=== PATIENT | male | born 1970 | race Two or more races ===

== ENCOUNTER 2017-10-25 13:52 | Emergency (ER) | payer OTHER ==
--- NOTE | 2017-10-25 14:42 | EDM.PDOC ---
ED HPI GENERAL MEDICAL PROBLEM - General Chief Complaint: Flank Pain Stated Complaint: LEFT SIDE INJURY Time Seen by Provider: 10/25/17 14:04 Source of Information: Reports: Patient History Limitations: Reports: No Limitations - History of Present Illness INITIAL COMMENTS - FREE TEXT/NARRATIVE: 47-year-old male presents for evaluation and treatment of pain to the left flank. Patient reports on , 5 days ago, he was at work. 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 States he was changing a tire when one of the tires shifted. He reports a twisting sensation and feeling a pop around his left flank area. He reports pain to the left mid back into the left flank and groin. He states since then he has had pain to the area, worse with movement. he states he has been taking [id number] medications but this pain continues. He reports on Tuesday he developed cramps and bloating. He denies any nausea, vomiting or syncope. No urinary symptoms such as hematuria or dysuria. Reports she's had some kidney stones in the past and this does not feel similar. Left Lower Chest Pain Score (Numeric/FACES): 7 - Related Data Allergies Allergy/AdvReac Type Severity Reaction Status Date / Time No Known Allergies Allergy Verified 10/25/17 14:05 Home Meds: Home Meds traMADol HCl [Tramadol HCl] 50 mg PO Q6H PRN #15 tablet 10/25/17 [Rx] traZODone HCl [Trazodone HCl] 50 mg PO BEDTIME PRN 10/25/17 [History] Past Medical History - Past Surgical History GI Surgical History: Reports: Appendectomy Musculoskeletal Surgical History: Reports: Other (See Below) Other Musculoskeletal Surgeries/Procedures:: right ulnar bone shortened Social & Family History - Tobacco Use Smoking Status *Q: Never Smoker - Caffeine Use Caffeine Use: Reports: Coffee - Recreational Drug Use Recreational Drug Use: No ED ROS GENERAL - Review of Systems Review Of Systems: See Below GI/Abdominal: Reports: Abdominal Pain (left lower abdomen into groni), Other ( reprots bloating over the weekend). Denies: Nausea, Vomiting : Reports: Flank Pain (left). Denies: Dysuria, Hematuria Musculoskeletal: Reports: Back Pain (left mid to low back) Neurological: Denies: Syncope ED EXAM, GI/ABD - Physical Exam Exam: See Below Exam Limited By: No Limitations General Appearance: Alert, WD/WN, No Apparent Distress Respiratory/Chest: No Respiratory Distress, Lungs Clear, Normal Breath Sounds Cardiovascular: Normal Peripheral Pulses, Regular Rate, Rhythm, No Murmur GI/Abdominal Exam: Normal Bowel Sounds, Soft, Non-Tender, Tender (tenderness to the left flank) Neurological: Alert, Oriented, Normal Cognition Psychiatric: Normal Affect, Normal Mood Skin Exam: Warm, Dry, Normal Color Course - Vital Signs Last Recorded V/S: Last Vital Signs Temp 97.6 F 10/25/17 14:01 Pulse 88 10/25/17 14:01 Resp 18 10/25/17 14:01 BP 132/90 10/25/17 14:01 Pulse Ox 100 10/25/17 14:01 - Orders/Labs/Meds Labs: Laboratory Tests 10/25/17 Range/Units 14:15 Urine Color Yellow (Yellow) Urine Appearance Clear (Clear) Urine pH 6.0 (5.0-8.0) Ur Specific [place] > or = 1.030 (1.005-1.030) Urine Protein 1+ H (Negative) Urine Glucose (UA) Negative (Negative) Urine Ketones Negative (Negative) Urine Occult Blood Trace-lysed H (Negative) Urine Nitrite Negative (Negative) Urine Bilirubin Negative (Negative) Urine Urobilinogen 0.2 (0.2-1.0) Ur Leukocyte Esterase Negative (Negative) Urine RBC 0-5 (0-5) /hpf Urine WBC 0-5 (0-5) /hpf Ur Epithelial Cells 0-5 (0-5) /hpf Urine Bacteria Occasional (FEW) /hpf Urine Mucus Moderate H (FEW) /hpf Departure - Departure Time of Disposition: 15:47 Disposition: Home, Self-Care 01 Condition: Good Clinical Impression: Abdominal muscle strain - Discharge Information *PRESCRIPTION DRUG MONITORING PROGRAM REVIEWED*: No *COPY OF PRESCRIPTION DRUG MONITORING REPORT IN PATIENT FILIBERTO: No Prescriptions: traMADol HCl [Tramadol HCl] 50 mg PO Q6H PRN #15 tablet PRN Reason: Pain Instructions: Muscle Strain, [id number] Referrals: PCP,None [Primary Care Provider] - Mynor Fontana MD [Physician] - Forms: ED Department Discharge Additional Instructions: Recommend ice or heat to the sore area for pain relief. may also try topical products such as icy hot or BenGay. Follow-up with occupational health within one week for recheck of your symptoms. Recommend Dr. Fontana at [place]. Please call [phone] to schedule with him. [id number] Tylenol or Motrin as needed for pain relief. For pain not relieved by Tylenol or Motrin may take tramadol, 1 tablet every [address] and operate machinery within 8 hours of taking tramadol. Tramadol can be habit forming, take as little as needed to control you pain. Please return to the ER if your symptoms change or worsen.
--- NOTE | 2017-10-26 12:30 | CR ---
Abdomen: Supine and upright views of the abdomen were obtained. Comparison: No prior abdominal x-ray. Small calcification is seen within the left pelvis most likely due to phlebolith. No other abnormal calcifications are seen. Bowel gas pattern is normal. No soft tissue abnormality is appreciated. Bony structures appear within normal limits. Impression: 1. Nothing acute is seen on two-view abdominal x-ray. Diagnostic code #2
== END 2017-10-25 16:02 | disposition home or self-care (01) ==
LOC: JD.ED 13:52
DX: S39.011A Strain of muscle, fascia and tendon of abdomen, initial encounter (principal); X50.1XXA Overexertion from prolonged static or awkward postures, initial encounter; Y99.0 Civilian activity done for income or pay
CPT/HCPCS: 74019; 74019-26; 81001; 99284

== ENCOUNTER 2017-11-18 13:52 | Emergency (ER) | payer BC, OTHER ==
[2017-11-18] MEDS ORDERED: HYDROmorphone 0.5 MG/0.5 ML SYRINGE IVPUSH ONE ×2 (14:35→16:10)
[2017-11-18] MEDS ORDERED: Sodium Chloride 0.9% 10 ML Syringe FLUSH PRN (14:35)
[2017-11-18] MEDS ORDERED: Ondansetron 4 MG/2 ML SDV IVPUSH ONE (14:35)
--- NOTE | 2017-11-18 14:38 | EDM.PDOC ---
ED HPI GENERAL MEDICAL PROBLEM - General Chief Complaint: Back Pain or Injury Stated Complaint: RT SIDE AND BACK PAIN Time Seen by Provider: 11/18/17 14:30 Source of Information: Reports: Patient History Limitations: Reports: No Limitations - History of Present Illness INITIAL COMMENTS - FREE TEXT/NARRATIVE: Patient is a 47-year-old male who presents ED complaining of right flank and right groin pain. Patient states this started approximately 2 days ago. He's been having a difficulty with urinating. This is because of increasing pain noted. He's been taken ibuprofen with little relief. He has no history kidney stones. States his appendix is removed. He takes trazodone help him sleep. Denies any fever, chills, nausea/vomiting, diarrhea, blood in stool, pain to his testicles, dysuria, recent trauma, or any additional complaints. 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 Right Flank Pain Score (Numeric/FACES): 9 - Related Data Allergies Allergy/AdvReac Type Severity Reaction Status Date / Time No Known Allergies Allergy Verified 11/18/17 14:13 Home Meds: Home Meds traZODone HCl [Trazodone HCl] 50 mg PO BEDTIME PRN 10/25/17 [History] Acetaminophen/oxyCODONE [Percocet 325-5 MG] 1 each PO Q6HR PRN #12 tab 11/18/17 [Rx] Ondansetron [Zofran ODT] 4 mg PO Q6H PRN #12 tab.dis 11/18/17 [Rx] Tamsulosin HCl [Flomax] 0.4 mg PO QAM #5 cap.er.24h 11/18/17 [Rx] Past Medical History - Past Health History Medical/Surgical History: Denies Medical/Surgical History - Infectious Disease History Infectious Disease History: Reports: Chicken Pox - Past Surgical History GI Surgical History: Reports: Appendectomy Musculoskeletal Surgical History: Reports: Other (See Below) Other Musculoskeletal Surgeries/Procedures:: right ulnar bone shortened Social & Family History - Family History Family Medical History: Noncontributory - Tobacco Use Smoking Status *Q: Never Smoker - Caffeine Use Caffeine Use: Reports: Coffee, Energy Drinks, Soda - Recreational Drug Use Recreational Drug Use: No ED ROS GENERAL - Review of Systems Review Of Systems: See Below Constitutional: Denies: Fever, Chills, Decreased Appetite Respiratory: Reports: No Symptoms Cardiovascular: Reports: No Symptoms GI/Abdominal: Reports: Abdominal Pain (right groin). Denies: Constipation, Diarrhea, Decreased Appetite, Nausea, Vomiting : Reports: Dysuria, Frequency, Urgency, Urinary Retention Musculoskeletal: Reports: Other (right low back pain with radiation to the right groin and testicles) Skin: Reports: No Symptoms ED EXAM, GI/ABD - Physical Exam Exam: See Below Exam Limited By: No Limitations General Appearance: Alert, WD/WN, Moderate Distress Ears: Hearing Grossly Normal Nose: Normal Inspection Throat/Mouth: Normal Voice, No Airway Compromise Neck: Normal Inspection, Supple Respiratory/Chest: No Respiratory Distress, Lungs Clear, Normal Breath Sounds, No Accessory Muscle Use Cardiovascular: Normal Peripheral Pulses, Regular Rate, Rhythm GI/Abdominal Exam: Normal Bowel Sounds, Soft, Non-Tender, No Organomegaly, No Distention Back Exam: Normal Inspection, CVA Tenderness (R) Neurological: Alert, Oriented, CN II-XII Intact, Normal Cognition, No Motor/ Sensory Deficits Psychiatric: Normal Affect, Normal Mood Skin Exam: Warm, Dry, Intact, Normal Color Course - Vital Signs Last Recorded V/S: Last Vital Signs Temp 97.3 F 11/18/17 14:09 Pulse 67 11/18/17 14:09 Resp 18 11/18/17 14:09 BP 130/95 H 11/18/17 14:09 Pulse Ox 100 11/18/17 14:09 - Orders/Labs/Meds Labs: Laboratory Tests 11/18/17 11/18/17 Range/Units 14:50 14:50 WBC 8.06 (4.23-9.07) K/mm3 RBC 5.03 (4.63-6.08) M/mm3 Hgb 14.9 (13.7-17.5) gm/L Hct 44.5 (40.1-51.0) % MCV 88.5 (79.0-92.2) fl MCH 29.6 (25.7-32.2) pg MCHC 33.5 (32.2-35.5) g/dl RDW Std Deviation 40.4 (35.1-43.9) fL Plt Count 301 (163-337) K/mm3 MPV 9.8 (9.4-12.3) fl Neutrophils % (Manual) 64 H (40-60) % Band Neutrophils % 0 (0-10) % Lymphocytes % (Manual) 29 (20-40) % Atypical Lymphs % 0 % Monocytes % (Manual) 4 (2-10) % Eosinophils % (Manual) 1 (0.8-7.0) % Basophils % (Manual) 2 H (0.2-1.2) Platelet Estimate Adequate Plt Morphology Comment Normal RBC Morph Comment Normal Sodium 137 (136-145) mEq/L Potassium 3.9 (3.5-5.1) mEq/L Chloride 104 (98-107) mEq/L Carbon Dioxide 25 (21-32) mEq/L Anion Gap 11.9 (5-15) BUN 10 (7-18) mg/dL Creatinine 1.1 (0.7-1.3) mg/dL Est Cr Clr Drug Dosing 72.99 mL/min Estimated GFR (MDRD) > 60 (>60) mL/min BUN/Creatinine Ratio 9.1 L (14-18) Glucose 87 (74-106) mg/dL Calcium 9.0 (8.5-10.1) mg/dL Total Bilirubin 0.7 (0.2-1.0) mg/dL AST 29 (15-37) U/L ALT 56 (16-63) U/L Alkaline Phosphatase 133 H (46-116) U/L C-Reactive Protein 0.4 (<1.0) mg/dL Total Protein 8.2 (6.4-8.2) g/dl Albumin 4.3 (3.4-5.0) g/dl Globulin 3.9 gm/dL Albumin/Globulin Ratio 1.1 (1-2) Meds: Medications Discontinued Medications Generic Name Dose Route Start Last Admin Trade Name Freq PRN Reason Stop Dose Admin Hydromorphone HCl 0.5 mg 11/18/17 14:35 11/18/17 15:01 Dilaudid IVPUSH 11/18/17 14:36 0.5 mg ONETIME ONE Administration Hydromorphone HCl 0.5 mg 11/18/17 16:10 11/18/17 16:32 Dilaudid IVPUSH 11/18/17 16:11 0.5 mg ONETIME ONE Administration Sodium Chloride 1,000 mls @ 250 mls/hr 11/18/17 14:45 11/18/17 15:03 Normal Saline IV 250 mls/hr ASDIRECTED STUART Administration Ondansetron HCl 4 mg 11/18/17 14:35 11/18/17 14:58 Zofran IVPUSH 11/18/17 14:36 4 mg ONETIME ONE Administration Sodium Chloride 10 ml 11/18/17 14:35 11/18/17 15:06 Saline Flush FLUSH 10 ml ASDIRECTED PRN Administration Keep Vein Open Tamsulosin HCl 0.4 mg 11/18/17 16:17 11/18/17 16:32 Flomax PO 11/18/17 16:18 0.4 mg ONETIME ONE Administration - Re-Assessments/Exams Free Text/Narrative Re-Assessment/Exam: CBC and chemistry panel were essentially normal. UA obtained earlier today at indicated trace ketones and trace blood in the urine. CT the abdomen and pelvis impression: Slightly prominent right ureter due to an obstructing distal right ureteral stone measuring 2.8 mm. This ureteral stone is located slightly proximal to the UVJ. Fatty infiltration within the liver. No additional abnormalities appreciated on noncontrast CT study of the abdomen and pelvis. Discuss results of labs and CT study with the patient. Still experiencing some discomfort. Ordered Flomax and Dilaudid. Patient will be discharged home with instructions as documented.The patient remained hemodynamically stable while under my care in the E.D. I discussed the concerning symptoms for which to returnto the E.D. with the patient/family. The patient/family verbalized understanding. All questions were answered. Departure - Departure Time of Disposition: 16:16 Disposition: Admitted As Inpatient 67 Condition: Good Clinical Impression: Kidney stone on right side - Discharge Information Prescriptions: Acetaminophen/oxyCODONE [Percocet 325-5 MG] 1 each PO Q6HR PRN #12 tab PRN Reason: Pain (Severe 7-10) Ondansetron [Zofran ODT] 4 mg PO Q6H PRN #12 tab.dis PRN Reason: Nausea Tamsulosin HCl [Flomax] 0.4 mg PO QAM #5 cap.er.24h Instructions: Kidney Stones, [id number], Pain Medicine Instructions, Easy-to- Read Referrals: PCP,None [Primary Care Provider] - Forms: ED Department Discharge Additional Instructions: Strain all urine voids until stone passes. Take Flomax 1 tablet every day for 5 days. Utilize Percocet one tab every 6 hours as needed for severe pain. Take Zofran 1 tablet every 6 hours as needed for nausea and vomiting. Push the fluids. If stone has not passed within the next 3-5 days please contact urologist of your choice in [place] for further evaluation. Return to the ED if you develop any new or worsening symptoms. Do not drive today since receiving a sedative medication. Do not drive while taking the Percocet.
[2017-11-18] MEDS ORDERED: Sodium Chloride 0.9% 1,000 ML IV SCH (14:45)
--- NOTE | 2017-11-18 15:40 | CT ---
CT abdomen and pelvis Technique: Multiple axial sections were obtained from above the dome of the diaphragm inferiorly through the pubic symphysis. Intravenous contrast was not utilized. Study performed as a ureteral stone protocol. Comparison: No prior CT exam, previous abdominal x-ray 10/25/17. Findings: Kidneys show no abnormal calcifications. Right ureter is slightly prominent. This is due to an obstructing stone within the distal right ureter measuring about 2.8 mm. This occurs slightly proximal to the right UVJ. No other abnormal calcifications are seen along the course of the ureters. Visualized lung bases shows nothing acute. Liver shows mild fatty infiltration. Spleen appears within normal limits. Adrenal glands show no nodule. Pancreas is within normal limits. Gallbladder contains no calcified gallstones. Aorta shows no aneurysm. No retroperitoneal adenopathy is seen. Previous appendectomy appears to be present. No pelvic mass or adenopathy is seen. No free fluid or inflammatory change is seen within the abdomen or pelvis. Bone window settings were reviewed which appear within normal limits for the patient's age. Impression: 1. Slightly prominent right ureter due to an obstructing distal right ureteral stone measuring 2.8 mm. This ureteral stone is located slightly proximal to the UVJ. 2. Fatty infiltration within the liver. 3. No additional abnormality is appreciated on noncontrast CT study of the abdomen and pelvis. Diagnostic code #3
[2017-11-18] MEDS ORDERED: Tamsulosin 0.4 MG Cap.ER PO ONE (16:17)
== END 2017-11-18 16:42 | disposition critical access hospital (66) ==
LOC: JD.ED 13:52
DX: N20.2 Calculus of kidney with calculus of ureter (principal)
CPT/HCPCS: 36415; 51798; 74176; 80053; 85007; 85027; 86140; 96361; 96374; 96375; 96376; 99284; A9270; J1170; J2405; J7040; J7050

== ENCOUNTER 2018-05-22 09:09 | Emergency (ER) | payer BC ==
[2018-05-22] MEDS ORDERED: Ketorolac 30 MG/ML SDV IVPUSH STA (10:16)
[2018-05-22] MEDS ORDERED: HYDROmorphone 1 MG/ML Syringe IVPUSH ONE (10:16)
[2018-05-22] MEDS ORDERED: Ondansetron 4 MG/2 ML SDV IVPUSH ONE (10:16)
[2018-05-22] MEDS ORDERED: Tamsulosin 0.4 MG Cap.ER PO ONE (10:16)
--- NOTE | 2018-05-22 10:19 | EDM.PDOC ---
ED HPI GENERAL MEDICAL PROBLEM - General Chief Complaint: Back Pain or Injury Stated Complaint: LOW BACK PAIN Time Seen by Provider: 05/22/18 10:03 Source of Information: Reports: Patient, Family (), RN Notes Reviewed History Limitations: Reports: No Limitations - History of Present Illness INITIAL COMMENTS - FREE TEXT/NARRATIVE: The patient states that he developed lower right back pain about a week ago. It radiates to his midline suprapubic region. It does not radiate down either lower extremity. It is burning in character, and constant, but made worse with virtually any movement. He states that it has been getting progressively worse over the week. The patient states that he has had both constipation and diarrhea for the past week. No nausea or vomiting. No urinary symptoms or gross hematuria. No recent fever. No prior similar symptoms; the patient states that he has had both kidney stones and muscle spasms and does not believe that this feels like either of those. The patient states that he has chronic right arm pain, for which she takes one tablet of Percocet every 4-5 hours along with ibuprofen, but he states that taking both of those has not helped with his pain. The patient states that he is from [place] and that he does not have a PCP. Lower Back Pain Score (Numeric/FACES): 9 - Related Data Allergies Allergy/AdvReac Type Severity Reaction Status Date / Time No Known Allergies Allergy Verified 05/22/18 09:31 Home Meds: Home Meds traZODone HCl [Trazodone HCl] 50 mg PO BEDTIME PRN 10/25/17 [History] Acetaminophen/oxyCODONE [Percocet 325-5 MG] 1 each PO Q6HR PRN #12 tab 11/18/17 [Rx] Ondansetron [Zofran ODT] 4 mg PO Q6H PRN #12 tab.dis 11/18/17 [Rx] Tamsulosin HCl [Flomax] 0.4 mg PO QAM #5 cap.er.24h 11/18/17 [Rx] Orphenadrine [Norflex] 1 tab PO Q12H PRN #14 tab.er 05/22/18 [Rx] Past Medical History Gastrointestinal History: Reports: GERD Genitourinary History: Reports: Renal Calculus Musculoskeletal History: Reports: Other (See Below) (Chronic right arm pain) - Infectious Disease History Infectious Disease History: Reports: Chicken Pox - Past Surgical History GI Surgical History: Reports: Appendectomy Musculoskeletal Surgical History: Reports: Other (See Below) (Multiple surgeries on right arm, including ulnar shortening) Social & Family History - Family History Family Medical History: Noncontributory - Tobacco Use Smoking Status *Q: Never Smoker - Caffeine Use Caffeine Use: Reports: Coffee, Soda - Alcohol Use Alcohol Use History: Yes Alcohol Use Frequency: Rarely - Recreational Drug Use Recreational Drug Use: No - Living Situation & Occupation Living situation: Reports: , with Spouse, with Family (1 son) Occupation: Employed ([employer]) ED ROS GENERAL - Review of Systems Review Of Systems: ROS reveals no pertinent complaints other than HPI. ED EXAM, GENERAL - Physical Exam Exam: See Below Exam Limited By: No Limitations General Appearance: Alert, WD/WN, No Apparent Distress Eye Exam: Bilateral Eye: EOMI, Normal Inspection Ears: Normal External Exam, Hearing Grossly Normal Nose: Normal Inspection Throat/Mouth: Normal Inspection, Normal Lips, Normal Voice, No Airway Compromise Head: Atraumatic, Normocephalic Neck: Normal Inspection, Full Range of Motion Respiratory/Chest: No Respiratory Distress, Lungs Clear, Normal Breath Sounds, No Accessory Muscle Use Cardiovascular: Normal Peripheral Pulses, Regular Rate, Rhythm, No Edema, No Gallop, No JVD, No Murmur, No Rub Peripheral Pulses: 4+: Radial (L), Radial (R) GI/Abdominal: Normal Bowel Sounds, Soft, No Organomegaly, No Distention, No Abnormal Bruit, No Mass, Tender (Generalized, non-focal) (Male) Exam: Deferred Rectal (Males) Exam: Deferred Back Exam: Normal Inspection, Full Range of Motion, Paraspinal Tenderness ( right lower back, including right flank) Extremities: Normal Inspection, Normal Range of Motion, No Pedal Edema, Normal Capillary Refill Neurological: Alert, Oriented, Normal Cognition, No Motor/Sensory Deficits Psychiatric: Normal Affect Skin Exam: Warm, Dry, Intact, Normal Color, No Rash Course - Vital Signs Last Recorded V/S: Last Vital Signs Temp 36.6 C 05/22/18 09:31 Pulse 68 05/22/18 09:31 Resp 14 05/22/18 09:31 BP 121/90 05/22/18 09:31 Pulse Ox 98 05/22/18 09:31 - Orders/Labs/Meds Orders: Active Orders 24 hr Category Date Time Status Sodium Chloride 0.9% [Normal Saline] 1,000 ml Med 05/22/18 10:30 Active IV ASDIRECTED Sodium Chloride 0.9% [Saline Flush] Med 05/22/18 10:52 Active 10 ml FLUSH ONETIME PRN Medication Orders Sodium Chloride (Normal Saline) 1,000 mls @ 150 mls/hr IV ASDIRECTED STUART Last Admin: 05/22/18 10:44 Dose: 150 mls/hr Sodium Chloride (Saline Flush) 10 ml FLUSH ONETIME PRN PRN Reason: IV FLUSH Last Admin: 05/22/18 11:19 Dose: 10 ml Labs: Laboratory Tests 05/22/18 05/22/18 05/22/18 Range/Units 10:20 10:35 12:20 WBC 6.78 (4.23-9.07) K/mm3 RBC 5.13 (4.63-6.08) M/mm3 Hgb 15.2 (13.7-17.5) gm/L Hct 44.8 (40.1-51.0) % MCV 87.3 (79.0-92.2) fl MCH 29.6 (25.7-32.2) pg MCHC 33.9 (32.2-35.5) g/dl RDW Std Deviation 40.7 (35.1-43.9) fL Plt Count 239 (163-337) K/mm3 MPV 9.9 (9.4-12.3) fl Neutrophils % (Manual) 65 H (40-60) % Band Neutrophils % 0 (0-10) % Lymphocytes % (Manual) 33 (20-40) % Atypical Lymphs % 0 % Monocytes % (Manual) 2 (2-10) % Eosinophils % (Manual) 0 L (0.8-7.0) % Basophils % (Manual) 0 L (0.2-1.2) Platelet Estimate Adequate RBC Morph Comment Normal Sodium 140 (136-145) mEq/L Potassium 4.0 (3.5-5.1) mEq/L Chloride 105 (98-107) mEq/L Carbon Dioxide 27 (21-32) mEq/L Anion Gap 12.0 (5-15) BUN 10 (7-18) mg/dL Creatinine 0.9 (0.7-1.3) mg/dL Est Cr Clr Drug Dosing 89.21 mL/min Estimated GFR (MDRD) > 60 (>60) mL/min BUN/Creatinine Ratio 11.1 L (14-18) Glucose 98 (74-106) mg/dL Calcium 9.2 (8.5-10.1) mg/dL Total Bilirubin 1.0 (0.2-1.0) mg/dL AST 25 (15-37) U/L ALT 54 (16-63) U/L Alkaline Phosphatase 128 H (46-116) U/L Total Protein 7.8 (6.4-8.2) g/dl Albumin 4.0 (3.4-5.0) g/dl Globulin 3.8 gm/dL Albumin/Globulin Ratio 1.1 (1-2) Urine Color Yellow (Yellow) Urine Appearance Clear (Clear) Urine pH 7.0 (5.0-8.0) Ur Specific [place] 1.015 (1.005-1.030) Urine Protein Negative (Negative) Urine Glucose (UA) Negative (Negative) Urine Ketones Negative (Negative) Urine Occult Blood Negative (Negative) Urine Nitrite Negative (Negative) Urine Bilirubin Negative (Negative) Urine Urobilinogen 0.2 (0.2-1.0) Ur Leukocyte Esterase Negative (Negative) Urine RBC 0-5 (0-5) /hpf Urine WBC Not seen (0-5) /hpf Ur Epithelial Cells Not seen (0-5) /hpf Urine Bacteria Rare (FEW) /hpf Urine Mucus Rare H (FEW) /hpf Meds: Medications Generic Name Dose Route Start Last Admin Trade Name Freq PRN Reason Stop Dose Admin Sodium Chloride 1,000 mls @ 150 mls/hr 05/22/18 10:30 05/22/18 10:44 Normal Saline IV 150 mls/hr ASDIRECTED STUART Administration Sodium Chloride 10 ml 05/22/18 10:52 05/22/18 11:19 Saline Flush FLUSH 10 ml ONETIME PRN Administration IV FLUSH Discontinued Medications Generic Name Dose Route Start Last Admin Trade Name Freq PRN Reason Stop Dose Admin Diatrizoate Meglum/Diatrizoate Sod 120 ml 05/22/18 10:52 05/22/18 11:19 Gastrografin 37% PO 05/22/18 10:53 90 ml ONETIME ONE Administration Hydromorphone HCl 1 mg 05/22/18 10:16 05/22/18 10:48 Dilaudid IVPUSH 05/22/18 10:17 1 mg ONETIME ONE Administration Iopamidol 100 ml 05/22/18 11:15 05/22/18 11:19 Isovue-370 (76%) IV 05/22/18 11:16 100 ml ONETIME ONE Administration Ketorolac Tromethamine 30 mg 05/22/18 10:16 05/22/18 10:46 Toradol IVPUSH 05/22/18 10:17 30 mg ONETIME STA Administration Ondansetron HCl 4 mg 05/22/18 10:16 05/22/18 10:44 Zofran IVPUSH 05/22/18 10:17 4 mg ONETIME ONE Administration Orphenadrine Citrate 100 mg 05/22/18 13:16 Norflex PO 05/22/18 13:17 ONETIME STA Tamsulosin HCl 0.4 mg 05/22/18 10:16 05/22/18 10:50 Flomax PO 05/22/18 10:17 0.4 mg ONETIME ONE Administration - Re-Assessments/Exams Free Text/Narrative Re-Assessment/Exam: 05/22/18 10:18 The cause of the patient's pain is not immediately clear. It may be due to a muscle spasm, or, possibly, a kidney stone, although the patient does not believe that it is due to either. Additionally, the patient has pain in his lower abdomen and has generalized tenderness to his abdomen. It is not clear if his abdominal symptoms are related to his back pain. I have ordered a CT scan of his abdomen and pelvis with oral and IV contrast. If it returns completely negative, then I will treat him with a muscle relaxant. 05/22/18 12:05 CT of the abdomen and pelvis with oral and IV contrast is read by Dr. Mccain as: 1. Fatty infiltration within the liver with focal fatty sparing next to the gallbladder. 2. Small cyst within each kidney. 3. Nothing acute is appreciated on CT study of the abdomen and pelvis. I am still awaiting urinalysis results. 05/22/18 13:20 Test results discussed with the patient and his . The patient's urinalysis is unremarkable. I suspect from a muscle spasm, therefore I have ordered Norflex , and will prescribe a 7 day course. Because one of the side effects of opioids , including Percocet, is muscle spasms, I am advising that the patient try to minimize his use of Percocet. I will refer the patient to our clinic for follow- up. Departure - Departure Time of Disposition: 13:21 Disposition: Home, Self-Care 01 Condition: Fair Clinical Impression: Muscle spasm of back - Discharge Information *PRESCRIPTION DRUG MONITORING PROGRAM REVIEWED*: Not Applicable *COPY OF PRESCRIPTION DRUG MONITORING REPORT IN PATIENT FILIBERTO: Not Applicable Referrals: Salome John MD [Physician] - Forms: ED Department Discharge Additional Instructions: You were seen in the emergency room for lower right back pain, radiating into your lower abdomen, for the past week. Workup in the ER included blood work, a urinalysis, and a CT scan of your abdomen and pelvis with oral and IV contrast. Your entire workup was unremarkable and does not explain the cause of your pain. Based on your history, physical examination, and ER tests, your back pain is most likely due to a muscle spasm. You have been started on the muscle relaxant Norflex. A prescription for Norflex has been sent to the [facility], located just south and across the [address] from [facility]. Take one tablet of Norflex every 12 hours, as prescribed. Because one of the side effects of opioids, including Percocet, is muscle spasms , we recommend that you try to minimize the use of Percocet. It is important that you stay active. Swimming is best, but walking is good, as well. Follow-up with Dr. Salome John, or one of the other providers in the clinic, as needed. If any other problems, please do not hesitate to return to the ER. - My Orders Last 24 Hours: My Active Orders 05/22/18 10:30 Sodium Chloride 0.9% [Normal Saline] 1,000 ml IV ASDIRECTED 05/22/18 10:52 Sodium Chloride 0.9% [Saline Flush] 10 ml FLUSH ONETIME PRN - Assessment/Plan Last 24 Hours: My Active Orders 05/22/18 10:30 Sodium Chloride 0.9% [Normal Saline] 1,000 ml IV ASDIRECTED 05/22/18 10:52 Sodium Chloride 0.9% [Saline Flush] 10 ml FLUSH ONETIME PRN
[2018-05-22] MEDS ORDERED: Sodium Chloride 0.9% 1,000 ML IV SCH (10:30)
[2018-05-22] MEDS ORDERED: Sodium Chloride 0.9% 10 ML Syringe FLUSH PRN (10:52)
[2018-05-22] MEDS ORDERED: Diatrizoate Meglumine/Diatrizoate Sodium 37% 120 ML Bottle PO ONE (10:52)
[2018-05-22] MEDS ORDERED: Iopamidol 755 Mg/ML 200 ML Bottle IV ONE (11:15)
--- NOTE | 2018-05-22 12:15 | CT ---
CT abdomen and pelvis Technique: Multiple axial sections were obtained from above the dome of the diaphragm inferiorly through the pubic symphysis. Intravenous and oral contrast was utilized. Delayed images were obtained to the bladder. Delayed images were also obtained through the bladder. Comparison: Previous noncontrast CT abdomen and pelvis exam dated 11/18/17. Findings: Liver shows mild fatty infiltration with area of focal fatty sparing next to the gallbladder. Small portion of the visualized lung bases shows nothing acute. Spleen appears normal. Adrenal glands show no nodule. Kidneys show symmetric contrast enhancement. Minimal cyst is noted within the left kidney measuring 5 mm. Very small cortical cyst also noted within the inferior right kidney measuring 4.6 mm. Kidneys otherwise appear normal. Pancreas is within normal limits. Aorta shows no aneurysm. No retroperitoneal adenopathy or mesenteric abnormalities are seen. Mild diverticulosis is noted within the sigmoid colon without diverticulitis. Appendix not visualized with surgical material seen off the cecum presumably from previous appendectomy. Delayed images show contrast within the distal ureters and within the bladder. Bone window settings were reviewed which appear within normal limits for the patient's age. Impression: 1. Fatty infiltration within the liver with focal fatty sparing next to the gallbladder. 2. Small cyst within each kidney. 3. Nothing acute is appreciated on CT study of the abdomen and pelvis. Diagnostic code #2
[2018-05-22] MEDS ORDERED: Orphenadrine 100 MG Tab.ER PO STA (13:16)
== END 2018-05-22 13:35 | disposition home or self-care (01) ==
LOC: JD.ED 09:09
DX: M62.830 Muscle spasm of back (principal); K21.9 Gastro-esophageal reflux disease without esophagitis; Z79.899 Other long term (current) drug therapy
CPT/HCPCS: 36415; 74177; 80053; 81001; 85007; 85027; 96361; 96374; 96375; 99284; A9270; J1170; J1885; J2405; J7040; Q9963; Q9967

== ENCOUNTER 2020-08-20 16:46 | Emergency (ER) | payer BC ==
[2020-08-20] MEDS ORDERED: HYDROmorphone 1 MG/ML Syringe IVPUSH STA (17:01)
[2020-08-20] MEDS ORDERED: Ondansetron 4 MG/2 ML SDV IVPUSH ONE (17:01)
[2020-08-20] MEDS ORDERED: Sodium Chloride 0.9% 1,000 ML IV ONE (17:03)
[2020-08-20] MEDS: Sodium Chloride 0.9% 10 ML Syringe FLUSH PRN ×2 (17:16→17:57)
--- NOTE | 2020-08-20 17:16 | EDM.PDOC ---
ED HPI GENERAL MEDICAL PROBLEM - General Chief Complaint: Abdominal Pain Stated Complaint: ABD PAIN Time Seen by Provider: 08/20/20 17:01 Source of Information: Reports: Patient, RN Notes Reviewed History Limitations: Reports: No Limitations - History of Present Illness INITIAL COMMENTS - FREE TEXT/NARRATIVE: Patient is a 49-year-old male who presents to the ER for the evaluation of his upper abdominal pain. He notes that this started Tuesday night, after they ate dinner at [employer] roughly an hour after the 8. States that his pain is in his epigastrium, left upper quadrant, and seems to radiate to his right upper quadrant. States that nothing really seems to make it better, it is there constantly but does get worse at times. States that the pain is just kind of a knot or tightness. He states that he is not been sleeping much due to the pain. Also states he has not been eating much, despite having appetite. He does feel somewhat nauseous as well. He states that he has had his appendix taken out, but still retains his gallbladder. He thought he had a fever 1 night, but this broke because he woke up sweating. He has been using Tylenol to no avail. Has had kidney stones in the past, and states this seems to be a different pain than normal. He had to switch primary care providers, notes that he had a CT a few weeks ago, and he was found to have diverticula without signs of diverticulitis at that time. He also is complaining of some slightly darker color to his urine from time to time. States he is trying to stay away from soda and soft drinks, and has been trying to increase his oral fluid intake such as water. Upper Abdomen Pain Score (Numeric/FACES): 8 - Related Data Allergies Allergy/AdvReac Type Severity Reaction Status Date / Time No Known Allergies Allergy Verified 08/20/20 16:55 Home Meds: Home Meds Acetaminophen/oxyCODONE [Percocet 325-5 MG] 1 each PO Q6H PRN #20 tab 08/20/20 [Rx] Ondansetron [Zofran ODT] 4 mg PO Q8H PRN #15 tab.dis 08/20/20 [Rx] Past Medical History Gastrointestinal History: Reports: Diverticulosis, GERD Genitourinary History: Reports: Renal Calculus Musculoskeletal History: Reports: Other (See Below) (Chronic right arm pain) Endocrine/Metabolic History: Reports: Obesity/BMI 30+ - Infectious Disease History Infectious Disease History: Reports: Chicken Pox, Novel Coronavirus (12/2019) - Past Surgical History GI Surgical History: Reports: Appendectomy Musculoskeletal Surgical History: Reports: Other (See Below) Other Musculoskeletal Surgeries/Procedures:: right ulnar bone shortened Social & Family History - Family History Family Medical History: No Pertinent Family History - Tobacco Use Tobacco Use Status *Q: Never Tobacco User - Caffeine Use Caffeine Use: Reports: Coffee - Recreational Drug Use Recreational Drug Use: No - Living Situation & Occupation Living situation: Reports: , with Spouse, with Family (1 son) 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 ED EXAM, GI/ABD - Physical Exam Exam: See Below Exam Limited By: No Limitations General Appearance: Alert, WD/WN, No Apparent Distress Respiratory/Chest: No Respiratory Distress, Lungs Clear, Normal Breath Sounds, No Accessory Muscle Use, Chest Non-Tender Cardiovascular: Normal Peripheral Pulses, Regular Rate, Rhythm, No Edema GI/Abdominal Exam: Normal Bowel Sounds, Soft, No Distention, No Mass, Tender (RUQ, Hadley's sign is positive, but entire upper abdomen is tender to pa lpation) Extremities: Normal Inspection, Normal Capillary Refill Neurological: Alert, Oriented, Normal Cognition, No Motor/Sensory Deficits Psychiatric: Normal Affect, Normal Mood Skin Exam: Warm, Dry, Intact, Normal Color, No Rash Course - Vital Signs Last Recorded V/S: Last Vital Signs Temp 97.9 F 08/20/20 16:51 Pulse 81 08/20/20 16:51 Resp 16 08/20/20 16:51 BP 123/86 08/20/20 16:51 Pulse Ox 97 08/20/20 16:51 - Orders/Labs/Meds Orders: Active Orders 24 hr Category Date Time Status Peripheral IV Insertion Adult [OM.PC] Routine Oth 08/20/20 17:03 Ordered Labs: Laboratory Tests 08/20/20 08/20/20 08/20/20 Range/Units 17:15 17:15 17:15 WBC 12.00 H (4.23-9.07) K/mm3 RBC 4.82 (4.63-6.08) M/mm3 Hgb 14.6 (13.7-17.5) gm/dl Hct 43.2 (40.1-51.0) % MCV 89.6 (79.0-92.2) fl MCH 30.3 (25.7-32.2) pg MCHC 33.8 (32.2-35.5) g/dl RDW Std Deviation 42.4 (35.1-43.9) fL Plt Count 232 (163-337) K/mm3 MPV 9.7 (9.4-12.3) fl Neut % (Auto) 70.7 H (34.0-67.9) % Lymph % (Auto) 20.4 L (21.8-53.1) % [place] % (Auto) 7.3 (5.3-12.2) % Eos % (Auto) 1.0 (0.8-7.0) Baso % (Auto) 0.3 (0.1-1.2) % Neut # (Auto) 8.49 H (1.78-5.38) K/mm3 Lymph # (Auto) 2.45 (1.32-3.57) K/mm3 [place] # (Auto) 0.88 H (0.30-0.82) K/mm3 Eos # (Auto) 0.12 (0.04-0.54) K/mm3 Baso # (Auto) 0.03 (0.01-0.08) K/mm3 Manual Slide Review Normal smear Sodium 136 (136-145) mEq/L Potassium 3.7 (3.5-5.1) mEq/L Chloride 100 (98-107) mEq/L Carbon Dioxide 23 (21-32) mEq/L Anion Gap 16.7 H (5-15) BUN 14 (7-18) mg/dL Creatinine 1.0 (0.7-1.3) mg/dL Est Cr Clr Drug Dosing 78.58 mL/min Estimated GFR (MDRD) > 60 (>60) mL/min BUN/Creatinine Ratio 14.0 (14-18) Glucose 101 H (70-99) mg/dL Calcium 8.5 (8.5-10.1) mg/dL Total Bilirubin 1.5 H (0.2-1.0) mg/dL GGT 79 (15-85) U/L AST 21 (15-37) U/L ALT 42 (16-63) U/L Alkaline Phosphatase 136 H (46-116) U/L C-Reactive Protein 6.3 H* (<1.0) mg/dL Total Protein 7.6 (6.4-8.2) g/dl Albumin 3.9 (3.4-5.0) g/dl Globulin 3.7 gm/dL Albumin/Globulin Ratio 1.1 (1-2) Lipase 90 (73-393) U/L Meds: Medications Discontinued Medications Generic Name Dose Route Start Last Admin Trade Name Freq PRN Reason Stop Dose Admin Hydromorphone HCl 1 mg 08/20/20 17:01 08/20/20 17:17 Hydromorphone 1 Mg/Ml Syringe IVPUSH 08/20/20 17:02 1 mg ONETIME STA Administration Hydromorphone HCl 0.5 mg 08/20/20 18:11 08/20/20 18:38 Hydromorphone 0.5 Mg/0.5 Ml Syringe IVPUSH 08/20/20 18:12 0.5 mg ONETIME ONE Administration Sodium Chloride 1,000 mls @ 999 mls/hr 08/20/20 17:03 08/20/20 17:16 Normal Saline IV 08/20/20 18:03 999 mls/hr ONETIME ONE Administration Iopamidol 50 ml 08/20/20 17:30 08/20/20 17:57 Iopamidol 612 Mg/Ml 50 Ml Sdv IVPUSH 08/20/20 17:31 50 ml ONETIME ONE Administration Iopamidol 100 ml 08/20/20 17:30 08/20/20 17:57 Iopamidol 612 Mg/Ml 100 Ml Bottle IVPUSH 08/20/20 17:31 100 ml ONETIME ONE Administration Ondansetron HCl 4 mg 08/20/20 17:01 08/20/20 17:16 Ondansetron 4 Mg/2 Ml Sdv IVPUSH 08/20/20 17:02 4 mg ONETIME ONE Administration Sodium Chloride 10 ml 08/20/20 17:03 08/20/20 17:57 Sodium Chloride 0.9% 10 Ml Syringe FLUSH 10 ml ASDIRECTED PRN Administration Keep Vein Open Sodium Chloride 10 ml 08/20/20 17:30 Sodium Chloride 0.9% 10 Ml Syringe FLUSH ASDIRECTED STUART - Re-Assessments/Exams Free Text/Narrative Re-Assessment/Exam: 08/20/20 17:16 Patient presents to the ER for his upper abdominal pain, we will go ahead get IV started, given some IV fluids, pain meds and nausea meds, get a CT and basic labs for evaluation. 08/20/20 17:56 Patient's labs have resulted for the most part, his white count is slightly elevated at 12.00, metabolic panel is essentially unremarkable, GGT within normal limits, lipase is within normal limits. CRP is elevated at 6.3. 08/20/20 18:58 CT does demonstrate some inflammation around the pancreatic head, questioning very minimal pancreatitis. I did reexamined the patient, he still having quite a bit of pain however he does not wish to stay in the hospital, states he is not an alcohol user. All other labs seem to be within normal limits, GGT was normal, lipase was normal, his total bilirubin was 1.5, just above the upper limits of normal for our standards. I will write for a gallbladder ultrasound to be done on an outpatient basis, and will send the patient home with some nausea meds and pain meds with strict return precautions. Patient verbalized understanding of the severity of his disease. Departure - Departure Time of Disposition: 18:59 Disposition: Home, Self-Care 01 Condition: Good Clinical Impression: Pancreatitis Qualifiers: Chronicity: acute Pancreatitis type: idiopathic Acute pancreatitis complication: no infection or necrosis Qualified Code(s): K85.00 - Idiopathic acute pancreatitis without necrosis or infection - Discharge Information *PRESCRIPTION DRUG MONITORING PROGRAM REVIEWED*: Yes *COPY OF PRESCRIPTION DRUG MONITORING REPORT IN PATIENT FILIBERTO: No Prescriptions: Acetaminophen/oxyCODONE [Percocet 325-5 MG] 1 each PO Q6H PRN #20 tab PRN Reason: Pain Ondansetron [Zofran ODT] 4 mg PO Q8H PRN #15 tab.dis PRN Reason: Nausea Instructions: Acute Pancreatitis, [id number], Pancreatitis Eating Plan Referrals: PCP,None [Ordering Only Provider] - Forms: ED Department Discharge Additional Instructions: You were evaluated in the ER today for your upper abdominal pain. Laboratory evaluation, and CT did demonstrate a mild case of pancreatitis, which is an inflammation of the pancreas. At this time, no antibiotic therapy is warranted for treatment however you have been sent home with 2 different medications to include an opioid pain reliever, nausea medication. You were given a prescription for a strong pain medication, oxycodone/acetaminophen 5/325 mg, please take 1 tab every 6 hours as needed for pain not relieved by Tylenol or ibuprofen alone. Please note this medication does contain Tylenol in it, so do not take more than 4000 mg in a 24-hour time span. These medications can be addictive, so please take as few as possible to achieve adequate pain control. These meds can also be quite constipating, recommend that you increase your oral fluid intake and take a stool softener like MiraLAX while taking these medications. Do not drive while taking this medication. You were also given a prescription for Zofran, 1 tablet dissolvable under your tongue every 8 hours as needed for ongoing nausea management. These medications were electronically prescribed to the [place] [facility] located in the [employer] [facility]. You may continue to take 600 mg ibuprofen every 6 hours as needed for ongoing symptoms as well. Please take this with food or copious liquids, as this might be upsetting to the stomach. Over the next few days, you may want to stick to a clear liquid diet advance to bland as tolerated until your upper abdomen feels a little bit better. An outpatient ultrasoundorder has been written for you, for evaluation of your gallbladder and biliary system, due to the new onset pancreatitis of unknown origin. Our radiology department will call you to schedule you for this exam, please be expecting a call from a private number, if you should receive 1 please answer the phone. This should likely be within the next day or so. You will have to follow-up with your primary care provider, Alicia Arana for results of this. If you should develop any worsening symptoms like fevers or chills, worsening pain, nausea so much that you cannot keep food or fluids down, you will need to return to the ER for further medical management. Sepsis Event Note (ED) - Evaluation Sepsis Screening Result: No Definite Risk - Focused Exam Vital Signs: Vital Signs Temp Pulse Resp BP Pulse Ox 08/20/20 16:51 97.9 F 81 16 123/86 97 - My Orders Last 24 Hours: My Active Orders 08/20/20 17:03 Peripheral IV Insertion Adult [OM.PC] Routine - Assessment/Plan Last 24 Hours: My Active Orders 08/20/20 17:03 Peripheral IV Insertion Adult [OM.PC] Routine
[2020-08-20] MEDS ORDERED: Iopamidol 612 MG/ML 50 ML SDV IVPUSH ONE (17:30)
[2020-08-20] MEDS ORDERED: Sodium Chloride 0.9% 10 ML Syringe FLUSH SCH (17:30)
[2020-08-20] MEDS ORDERED: Iopamidol 612 MG/ML 100 ML Bottle IVPUSH ONE (17:30)
[2020-08-20] MEDS ORDERED: HYDROmorphone 0.5 MG/0.5 ML Syringe IVPUSH ONE (18:11)
--- NOTE | 2020-08-20 18:27 | CT ---
CT abdomen and pelvis Technique: Multiple axial sections were obtained from above the dome of the diaphragm inferiorly through the pubic symphysis. Intravenous contrast was utilized. No oral contrast was utilized. Reconstructed coronal and sagittal images were obtained. Comparison: Prior CT abdomen and pelvis study of 05/22/18. Findings: Visualized lung bases show nothing acute. Mild fatty infiltration is seen within the liver. Gallbladder contains no calcified gallstones. Spleen size is normal. Adrenal glands show no nodule. Minimal hiatal hernia is noted. Left kidney shows two small cysts. Very minimal cyst is noted within the right kidney. Abdominal aorta shows no aneurysm. No retroperitoneal adenopathy is seen. Pancreas shows equivocal inflammatory change around the head. Difficult to exclude minimal pancreatitis. Pancreas is otherwise unremarkable. No mesenteric abnormalities are seen. Appendix is not visualized. No pelvic mass or adenopathy is seen. Bone window settings were reviewed which show no acute osseous abnormality. Delayed images show contrast within the ureters and bladder. Impression: 1. Possible mild inflammatory change around the head of the pancreas. Difficult to exclude minimal pancreatitis. Please correlate with laboratory values. 2. Fatty infiltration within the liver. 3. Other findings believed to be incidental as noted above. Diagnostic code #3
== END 2020-08-20 19:10 | disposition home or self-care (01) ==
LOC: JD.ED 16:46
DX: K85.00 Idiopathic acute pancreatitis without necrosis or infection (principal); E66.9 Obesity, unspecified; Z68.30 Body mass index [BMI] 30.0-30.9, adult; Z86.16 Personal history of COVID-19
CPT/HCPCS: 36415; 74177; 80053; 82977; 83690; 85025; 86140; 96374; 96375; 96376; 99284; J1170; J2405; J7030; Q9967

== ENCOUNTER 2021-06-30 09:27 | Emergency (ER) | payer BC ==
[2021-06-30] MEDS ORDERED: Sodium Chloride 0.9% 10 ML Syringe FLUSH PRN (10:06)
[2021-06-30] MEDS ORDERED: Ondansetron 4 MG/2 ML SDV IVPUSH ONE (10:06)
[2021-06-30] MEDS ORDERED: HYDROmorphone 0.5 MG/0.5 ML Syringe IVPUSH ONE (10:08)
[2021-06-30] MEDS ORDERED: Ketorolac 30 MG/ML SDV IVPUSH ONE (10:14)
[2021-06-30] MEDS ORDERED: Sodium Chloride 0.9% 1,000 ML IV SCH (10:15)
[2021-06-30] MEDS ORDERED: HYDROmorphone 1 MG/ML Syringe IVPUSH ONE (11:14)
== END 2021-06-30 13:05 | disposition home or self-care (01) ==
LOC: JD.ED 09:27
DX: R10.31 Right lower quadrant pain (principal); K21.9 Gastro-esophageal reflux disease without esophagitis; E66.9 Obesity, unspecified; Z68.33 Body mass index [BMI] 33.0-33.9, adult; Z86.16 Personal history of COVID-19; Z79.899 Other long term (current) drug therapy
CPT/HCPCS: 36415; 74176; 80053; 81001; 85025; 96374; 96375; 96376; 99284; J1170; J1885; J2405; J3490; J7030

== ENCOUNTER 2021-07-05 20:41 | Emergency (ER) | payer BC ==
[2021-07-05] MEDS ORDERED: HYDROmorphone 1 MG/ML Syringe IVPUSH ONE ×2 (21:43→23:32)
[2021-07-05] MEDS ORDERED: Ondansetron 4 MG/2 ML SDV IVPUSH ONE (21:43)
[2021-07-05] MEDS ORDERED: Sodium Chloride 0.9% 1,000 ML IV SCH (21:45)
[2021-07-05] MEDS ORDERED: Tamsulosin 0.4 MG Cap.ER PO ONE (23:38)
== END 2021-07-06 00:50 | disposition home or self-care (01) ==
LOC: JD.ED 20:41
DX: N20.1 Calculus of ureter (principal); E66.9 Obesity, unspecified; Z68.32 Body mass index [BMI] 32.0-32.9, adult; Z79.899 Other long term (current) drug therapy; Z86.16 Personal history of COVID-19; Z90.49 Acquired absence of other specified parts of digestive tract
CPT/HCPCS: 36415; 74177; 76705; 80053; 81001; 83690; 83735; 85007; 85027; 96374; 96375; 96376; 99284; A9270; J1170; J2405; J7030

== ENCOUNTER 2022-08-28 21:52 | Emergency (ER) | payer BC ==
[2022-08-28] MEDS ORDERED: HYDROmorphone 0.5 MG/0.5 ML Syringe IM ONE (22:33)
== END 2022-08-28 23:30 | disposition home or self-care (01) ==
LOC: JD.ED 21:52
DX: M79.604 Pain in right leg (principal); E66.9 Obesity, unspecified; Z68.30 Body mass index [BMI] 30.0-30.9, adult; Z86.16 Personal history of COVID-19
CPT/HCPCS: 73590; 73610; 99283; J1170

== ENCOUNTER 2023-07-14 22:41 | Emergency (ER) | payer BC ==
[2023-07-14] MEDS ORDERED: Sodium Chloride 0.9% 100 ML IV SCH (23:45)
[2023-07-15] MEDS: Ketorolac 15 MG/ML SDV IVPUSH ONE (00:03)
[2023-07-15] MEDS: Sodium Chloride 0.9% 1,000 ML IV ONE (00:04)
[2023-07-15] MEDS: Iopamidol 755 Mg/ML 100 ML Bottle IVPUSH ONE (00:08)
[2023-07-15 00:14] LABS: BASOPHILS ABSOLUTE AUTO 0.1 K/mm3 (0.0-0.2); BASOPHILS PERCENT AUTO 0.4 % (0.0-1.0); EOSINOPHILS PERCENT AUTO 0.1 % (0.0-6.0); IMMATURE GRAN PERCENT AUTO 0.5 % (0.0-0.4); LYMPHOCYTES ABSOLUTE AUTO 2.6 K/mm3 (1.0-4.8); LYMPHOCYTES PERCENT AUTO 13.5 % (24.0-44.0); MEAN CORPUSCULAR HEMOGLOBIN 29.4 pg (28.0-32.0); MEAN CORPUSCULAR HGB CONC 34.1 g/dl (32.0-36.0); MEAN CORPUSCULAR VOLUME 86.3 fl (83.0-99.0); MEAN PLATELET VOLUME 9.9 fl (9.4-12.4); MONOCYTES ABSOLUTE AUTO 1.9 K/mm3 (0.0-0.8); MONOCYTES PERCENT AUTO 9.7 % (0.0-8.0); NEUTROPHILS ABSOLUTE AUTO 14.5 K/mm3 (1.8-7.7); NEUTROPHILS PERCENT AUTO 75.8 % (41.0-71.0); PLATELET COUNT,PLT 221 K/mm3 (150-400); WHITE BLOOD CELL COUNT,WBC 19.09 K/mm3 (3.9-11.3)
[2023-07-15] MEDS: Ondansetron 4 MG/2 ML SDV IVPUSH ONE (00:30)
[2023-07-15 00:36] LABS: SLIDE REVIEW ABNORMAL SMEAR
[2023-07-15 00:40] LABS: ALBUMIN 3.9 g/dl (3.4-5.0); ANION GAP 15.8 (5-15); BUN/CREATININE RATIO 5.5 (14-18); CALCIUM 8.8 mg/dL (8.5-10.1); CREATININE 1.1 mg/dL (0.7-1.3); EST CRCL DRUG DOSING (CG) 69.11 mL/min; POTASSIUM,K 3.8 mEq/L (3.5-5.1); PROTEIN TOTAL,TP 7.8 g/dl (6.4-8.2)
[2023-07-15] MEDS: Ampicillin/Sulbactam Na 3 GM in Sodium Chloride 0.9% 100 ML IV ONE (02:03)
== END 2023-07-15 04:46 | disposition home or self-care (01) ==
LOC: JD.ED 22:41
DX: J34.89 Other specified disorders of nose and nasal sinuses (principal); Z85.22 Personal history of malignant neoplasm of nasal cavities, middle ear, and accessory sinuses; E66.9 Obesity, unspecified; Z68.31 Body mass index [BMI] 31.0-31.9, adult; Z86.16 Personal history of COVID-19; Z90.49 Acquired absence of other specified parts of digestive tract; Z87.891 Personal history of nicotine dependence; Z79.899 Other long term (current) drug therapy
CPT/HCPCS: 36415; 70460; 70487; 80053; 85025; 96361; 96365; 96375; 99284; J0295; J1885; J2405; J3490; J7030; Q9967

== ENCOUNTER 2023-12-15 07:39 | Emergency (ER) | payer BC ==
[2023-12-15 09:23] LABS: BASOPHILS ABSOLUTE AUTO 0.1 K/mm3 (0.0-0.2); BASOPHILS PERCENT AUTO 0.7 % (0.0-1.0); EOSINOPHILS PERCENT AUTO 0.2 % (0.0-6.0); HEMATOCRIT 46.3 % (42.0-52.0); HEMOGLOBIN 15.7 gm/dl (14.0-18.0); IMMATURE GRAN ABSOLUTE AUTO 0.02 K/mm3 (0.00-0.05); IMMATURE GRAN PERCENT AUTO 0.2 % (0.0-0.4); LYMPHOCYTES ABSOLUTE AUTO 1.8 K/mm3 (1.0-4.8); LYMPHOCYTES PERCENT AUTO 21.6 % (24.0-44.0); MEAN CORPUSCULAR HEMOGLOBIN 29.7 pg (28.0-32.0); MEAN CORPUSCULAR HGB CONC 33.9 g/dl (32.0-36.0); MEAN CORPUSCULAR VOLUME 87.5 fl (83.0-99.0); MEAN PLATELET VOLUME 9.6 fl (9.4-12.4); MONOCYTES ABSOLUTE AUTO 0.5 K/mm3 (0.0-0.8); MONOCYTES PERCENT AUTO 5.8 % (0.0-8.0); NEUTROPHILS ABSOLUTE AUTO 6.1 K/mm3 (1.8-7.7); NEUTROPHILS PERCENT AUTO 71.5 % (41.0-71.0); PLATELET COUNT,PLT 253 K/mm3 (150-400); RED BLOOD CELL COUNT 5.29 M/mm3 (4.52-5.90); WHITE BLOOD CELL COUNT,WBC 8.49 K/mm3 (3.9-11.3)
[2023-12-15] MEDS: Sodium Chloride 0.9% 1,000 ML IV ONE (09:30)
[2023-12-15] MEDS: Ondansetron 4 MG/2 ML SDV IVPUSH ONE (09:31)
[2023-12-15] MEDS: HYDROmorphone 1 MG/ML Syringe IVPUSH ONE (09:32)
[2023-12-15] MEDS: Sodium Chloride 0.9% 10 ML Syringe FLUSH PRN (09:33)
[2023-12-15 09:45] LABS: A/G RATIO 1.2 (1-2); ALBUMIN 4.5 g/dl (3.4-5.0); ANION GAP 14.8 (5-15); CALCIUM 9.1 mg/dL (8.5-10.1); EST CRCL DRUG DOSING (CG) 75.17 mL/min; MAGNESIUM 2.2 mg/dL (1.8-2.4); POTASSIUM,K 3.8 mEq/L (3.5-5.1); PROTEIN TOTAL,TP 8.2 g/dl (6.4-8.2)
[2023-12-15 09:47] LABS: LACTIC ACID 1.4 mmol/L (0.4-2.0)
[2023-12-15 09:52] LABS: APPEARANCE,URINE CLEAR (Clear); BILIRUBIN,URINE NEGATIVE (Negative); COLOR,URINE YELLOW (Yellow); GLUCOSE,URINE NEGATIVE (Negative); KETONES,URINE 3+ (Negative); LEUKOCYTE ESTERASE,URINE NEGATIVE (Negative); NITRITE,URINE NEGATIVE (Negative); OCCULT BLOOD,URINE TRACE-LYSED (Negative); PROTEIN,URINE NEGATIVE (Negative); UROBILINOGEN,URINE 0.2 (0.2-1.0)
[2023-12-15 09:59] LABS: BACTERIA,URINE RARE /hpf (FEW); EPITHELIAL CELLS,URINE 0-5 /hpf (0-5); MUCUS,URINE RARE /hpf (FEW); RBC,URINE 0-5 /hpf (0-5); WBC,URINE 0-5 /hpf (0-5)
[2023-12-15 10:31] LABS: CORONAVIRUS COVID-19 NAA NEGATIVE (NEGATIVE); INFLUENZA A NAA NEGATIVE (NEGATIVE); RESPIRATORY SYNCYTIAL VIR NAA NEGATIVE (NEGATIVE)
== END 2023-12-15 12:18 | disposition home or self-care (01) ==
LOC: JD.ED 07:39
DX: B34.9 Viral infection, unspecified (principal); B02.9 Zoster without complications; R51.9 Headache, unspecified; E66.9 Obesity, unspecified; Z86.16 Personal history of COVID-19; Z90.49 Acquired absence of other specified parts of digestive tract; Z79.899 Other long term (current) drug therapy; Z68.30 Body mass index [BMI] 30.0-30.9, adult
CPT/HCPCS: 0241U; 36415; 70450; 70450-26; 71045; 71045-26; 80053; 81001; 82550; 83605; 83690; 83735; 85025; 86308; 87040; 87651-QW; 93005; 96361; 96374; 96375; 99284-25; J1171; J2405; J3490; J7030

== ENCOUNTER 2024-07-19 21:44 | Emergency (ER) | payer BC ==
[2024-07-19] MEDS ORDERED: Sodium Chloride 0.9% 10 ML Syringe FLUSH PRN (22:24)
[2024-07-19 22:43] LABS: BASOPHILS ABSOLUTE AUTO 0.1 K/mm3 (0.0-0.2); BASOPHILS PERCENT AUTO 0.5 % (0.0-1.0); EOSINOPHILS ABSOLUTE AUTO 0.1 K/mm3 (0.0-0.4); EOSINOPHILS PERCENT AUTO 1.1 % (0.0-6.0); HEMATOCRIT 42.3 % (42.0-52.0); HEMOGLOBIN 14.3 gm/dl (14.0-18.0); IMMATURE GRAN ABSOLUTE AUTO 0.02 K/mm3 (0.00-0.05); IMMATURE GRAN PERCENT AUTO 0.2 % (0.0-0.4); LYMPHOCYTES ABSOLUTE AUTO 2.8 K/mm3 (1.0-4.8); LYMPHOCYTES PERCENT AUTO 26.1 % (24.0-44.0); MEAN CORPUSCULAR HEMOGLOBIN 29.5 pg (28.0-32.0); MEAN CORPUSCULAR HGB CONC 33.8 g/dl (32.0-36.0); MEAN CORPUSCULAR VOLUME 87.4 fl (83.0-99.0); MEAN PLATELET VOLUME 9.6 fl (9.4-12.4); MONOCYTES ABSOLUTE AUTO 0.8 K/mm3 (0.0-0.8); MONOCYTES PERCENT AUTO 7.8 % (0.0-8.0); NEUTROPHILS ABSOLUTE AUTO 6.8 K/mm3 (1.8-7.7); NEUTROPHILS PERCENT AUTO 64.3 % (41.0-71.0); PLATELET COUNT,PLT 234 K/mm3 (150-400); RED BLOOD CELL COUNT 4.84 M/mm3 (4.52-5.90); WHITE BLOOD CELL COUNT,WBC 10.53 K/mm3 (3.9-11.3)
[2024-07-19 23:06] LABS: A/G RATIO 1.3 (1-2); ALBUMIN 3.9 g/dl (3.4-5.0); ANION GAP 12.8 (5-15); BILIRUBIN TOTAL 1.1 mg/dL (0.2-1.0); BUN/CREATININE RATIO 12.2 (14-18); CALCIUM 8.6 mg/dL (8.5-10.1); CREATININE 0.9 mg/dL (0.7-1.3); EST CRCL DRUG DOSING (CG) 83.52 mL/min; POTASSIUM,K 3.8 mEq/L (3.5-5.1)
[2024-07-19] MEDS: Sodium Chloride 0.9% 1,000 ML IV ONE (23:54)
[2024-07-19] MEDS: HYDROmorphone 1 MG/ML Syringe IVPUSH ONE (23:54)
[2024-07-20] MEDS: Ondansetron 4 MG/2 ML SDV IVPUSH ONE (01:22)
[2024-07-20] MEDS ORDERED: LORazepam 1 MG Tab PO ONE (02:03)
[2024-07-20] MEDS: diphenhydrAMINE 50 MG/ML SDV IVPUSH ONE (02:26)
== END 2024-07-20 08:15 ==
LOC: JD.ED 21:44
DX: J95.830 Postprocedural hemorrhage of a respiratory system organ or structure following a respiratory system procedure (principal); K21.9 Gastro-esophageal reflux disease without esophagitis; E66.9 Obesity, unspecified; Z79.899 Other long term (current) drug therapy; Z90.49 Acquired absence of other specified parts of digestive tract; Z68.30 Body mass index [BMI] 30.0-30.9, adult
CPT/HCPCS: 36415; 80053; 85025; 86850; 86900; 86901; 96361; 96374; 96375; 99284-25; J1171; J1200; J2405; J7030